=== PATIENT | female | born 1980 | race Caucasian/White ===

== ENCOUNTER 2017-08-12 03:32 | Emergency (ER) | payer OTHER ==
[~2017-08-12] VITALS: Ht 170.2 cm; Wt 74.4 kg
[2017-08-12] MEDS ORDERED: PROGESTERONE200 MG (03:45)
[2017-08-12] MEDS ORDERED: SYNTHROID50 MCG (03:47)
== END 2017-08-12 08:11 | disposition home or self-care (01) ==
LOC: ER 03:32
DX: Z34.01 Encounter for supervision of normal first pregnancy, first trimester (principal); O46.8X1 Other antepartum hemorrhage, first trimester

== ENCOUNTER 2017-08-12 18:19 | Inpatient (IN) | payer OTHER ==
[~2017-08-12] VITALS: Ht 172.7 cm; Wt 74.4 kg
[~2017-08-12 18:19] MED LIST: PROGESTERONE200 MG; SYNTHROID50 MCG
== END 2017-08-13 14:26 | disposition home or self-care (01) | DRG 770 ==
LOC: ER 18:19 → SURG 19:52 → O/R 19:52 → SURG 08-13 01:34
PROVIDERS: Obstetrics & Gynecology Maternal & Fetal Medicine
PROC: BY49ZZZ Ultrasonography of First Trimester, Single Fetus (ICD-10-PCS; 2017-08-12)
PROC: 10D17Z9 Manual Extraction of Products of Conception, Retained, Via Natural or Artificial Opening (ICD-10-PCS; principal; 2017-08-12 20:00)
PROC: 0HQ0XZZ Repair Scalp Skin, External Approach (ICD-10-PCS; 2017-08-13)
PROC: B020ZZZ Computerized Tomography (CT Scan) of Brain (ICD-10-PCS; 2017-08-13)
DX: O03.1 Delayed or excessive hemorrhage following incomplete spontaneous abortion (principal); S01.02XA Laceration with foreign body of scalp, initial encounter; W18.39XA Other fall on same level, initial encounter; Y93.89 Activity, other specified; Y92.89 Other specified places as the place of occurrence of the external cause; Y99.8 Other external cause status

== ENCOUNTER 2017-09-18 08:28 | Outpatient (CLI) | payer OTHER | END 2017-09-18 15:50 | disposition home or self-care (01) | LOC: MAMO-SONO 08:28 | DX: Z12.31 Encounter for screening mammogram for malignant neoplasm of breast (principal); N64.89 Other specified disorders of breast; N64.4 Mastodynia; N60.11 Diffuse cystic mastopathy of right breast ==

== ENCOUNTER → 2019-03-23 | Emergency (ER) | payer OTHER ==
[~2019-03-23] VITALS: Ht 170.2 cm; Wt 72.6 kg
[~2019-03-23] MED LIST changes: +[UNRECOGNIZED DRUG - OTHER]
== END | disposition home or self-care (01) ==
LOC: ER 21:54
DX: N83.292 Other ovarian cyst, left side (principal); N83.291 Other ovarian cyst, right side; R30.0 Dysuria

== ENCOUNTER 2021-12-01 13:36 | Outpatient (CLI) | payer OTHER | END 2021-12-01 13:50 | disposition home or self-care (01) | LOC: MAMO-SONO 13:36 | PROVIDERS: ATTEND Obstetrics & Gynecology Maternal & Fetal Medicine | DX: Z12.31 Encounter for screening mammogram for malignant neoplasm of breast (principal); N63 Unspecified lump in breast; N64.4 Mastodynia; N60.11 Diffuse cystic mastopathy of right breast ==

== ENCOUNTER → 2022-10-23 | Outpatient (CLI) | payer OTHER | END | disposition home or self-care (01) | LOC: MAMO-SONO 10:48 | PROVIDERS: ATTEND Obstetrics & Gynecology Maternal & Fetal Medicine | DX: Z12.31 Encounter for screening mammogram for malignant neoplasm of breast (principal); N63.0 Unspecified lump in unspecified breast; N64.4 Mastodynia; N60.11 Diffuse cystic mastopathy of right breast ==

== ENCOUNTER 2022-12-18 10:48 | Outpatient (CLI) | payer OTHER | END 2022-12-18 13:43 | disposition home or self-care (01) | LOC: MRI 10:48 | PROVIDERS: ATTEND Internal Medicine | DX: D35.2 Benign neoplasm of pituitary gland (principal) | CPT/HCPCS: 70553 ==

== ENCOUNTER 2023-12-24 09:32 | Outpatient (CLI) | payer OTHER | END 2023-12-24 14:19 | disposition home or self-care (01) | LOC: MAMO-SONO 09:32 | PROVIDERS: ATTEND Obstetrics & Gynecology Maternal & Fetal Medicine | DX: N63 Unspecified lump in breast (principal); Z12.31 Encounter for screening mammogram for malignant neoplasm of breast; N64.4 Mastodynia; N60.11 Diffuse cystic mastopathy of right breast ==

== ENCOUNTER 2024-12-25 09:48 | Outpatient (CLI) | payer OTHER | END 2024-12-25 16:09 | disposition home or self-care (01) | LOC: MAMO-SONO 09:48 | PROVIDERS: ATTEND Obstetrics & Gynecology Maternal & Fetal Medicine | DX: R10.2 Pelvic and perineal pain (principal); N63 Unspecified lump in breast; Z12.31 Encounter for screening mammogram for malignant neoplasm of breast; N64.4 Mastodynia; N60.11 Diffuse cystic mastopathy of right breast | CPT/HCPCS: 72195 ==